=== PATIENT | male | born 1985 | race Native Hawaiian/Other Pacific Islander ===

== ENCOUNTER 2020-07-24 14:06 | Emergency (ER) | payer BC ==
[2020-07-24] MEDS ORDERED: EMLA Cream 5 GM TP ONE ×2 (14:16→14:17)
[2020-07-24 15:38] VITALS: BP 131/93; PULSE 105
--- NOTE | 2020-07-24 15:41 | ERPHSYRPT ---
- History of Present Illness Time Seen by Provider: 07/24/20 14:50 Source: patient Exam Limitations: no limitations Patient Subjective Stated Complaint: Pt hit his right brow on a van door causing an approx 3 cm laceration Triage Nursing Assessment: Pt brought into the ER by his , tachycardic, approx 3 cm laceration above/through/and under the right brow, rates pain as 4/10, denies LOC, doesn't appear to be in any distress Physician History: Patient is a 33-year-old male who was hit when he turned into a door on a van just on the right forehead eyebrow and nose. There are actually 3 separate lacerations total length approximately 5 cm only a small portion of about a centimeter and a half is deep enough to require any sutures. Was no loss of consciousness there was no other injury. Timing/Duration: today Quality: painful Severity: mild Location: face Associated Symptoms: denies symptoms Allergies/Adverse Reactions: bupropion [From Wellbutrin] Adverse Reaction (Verified 07/24/20 14:30) diphenhydramine [From Benadryl] Adverse Reaction (Verified 07/24/20 14:30) Home Medications: No Reportable Medications [No Reported Medications] 07/24/20 [History] Immunizations Up to Date: No Travel Risk - International Travel Have you traveled outside of the country in past 3 weeks: No - Coronavirus Screening Are you exhibiting any of the following symptoms?: No Close contact with a COVID-19 positive Pt in past 14-21 Days: No - Vaccine Status Have you recieved a Covid-19 vaccination: Yes [employer]: Moderna - Vaccination Dates Date of 2cond Vaccination (if applicable): 07/10/2020 - Review of Systems Constitutional: No Fever, No Chills Eyes: No Symptoms Ears, Nose, & Throat: No Symptoms Respiratory: No Cough, No Dyspnea Cardiac: No Chest Pain, No Edema, No Syncope Abdominal/Gastrointestinal: No Abdominal Pain, No Nausea, No Vomiting, No Diarrhea Genitourinary Symptoms: No Dysuria Musculoskeletal: No Back Pain, No Neck Pain Skin: No Rash Neurological: No Dizziness, No Focal Weakness, No Sensory Changes Psychological: No Symptoms Endocrine: No Symptoms All Other Systems: Reviewed and Negative - Past Medical History Pertinent Past Medical History: No - Past Surgical History Past Surgical History: Yes Other Surgical History: rt ear drum reconstructed. rt ear burst twice. lots of ear tubes - Social History Smoking Status: Current every day smoker Exposure to second hand smoke: Yes Drug Use: marijuana Patient Lives Alone: No - Nursing Vital Signs Nursing Vital Signs: Initial Vital Signs Temperature 98.2 F 07/24/20 14:14 Pulse Rate 108 H 07/24/20 14:14 Blood Pressure 131/94 07/24/20 14:14 O2 Sat by Pulse Oximetry 97 07/24/20 14:14 Pain Scale Pain Intensity 4 - Physical Exam General Appearance: mild distress Eye Exam: PERRL/EOMI, eyes nml inspection Ears, Nose, Throat Exam: normal ENT inspection, pharynx normal, moist mucous membranes Neck Exam: normal inspection, non-tender, supple Respiratory Exam: No chest tenderness, No respiratory distress Neurologic Exam: alert, oriented x 3, cooperative Skin Exam: laceration (As mentioned above there is a laceration on the right forehead actually 3 lacerations total length 5 cm) SpO2 Interpretation: normal SpO2: 98 O2 Delivery: Room Air Procedures - Laceration/Wound Repair Face Time of Procedure: 15:00 (5 cm total length of 3 lacerations to the right fo rehead eyebrow and nose all of the ear laceration is extremely superficial other than about a centimeter and a half in the middle of the largest laceration just above the eyebrow and into the eyebrow) Wound Location: forehead Wound Length (cm): 5 Wound's Depth, Shape: superficial, linear Wound Explored: clean Irrigated: Yes Hibiclens Prep: Yes Anesthesia: topical Wound Debrided: minimal (v) Suture Size/Type: 6-0 Number of Sutures: 4 Layer Closure?: No Sterile Dressing Applied?: No Splint Applied?: No - Course Nursing assessment & vital signs reviewed: Yes Ordered Tests: Medication Summary Discontinued Medications Generic Name Dose Route Start Last Admin Trade Name Freq PRN Reason Stop Dose Admin Lidocaine/Prilocaine 2.5 gm 07/24/20 14:16 07/24/20 14:20 Emla Cream 5 Gm TP 07/24/20 14:17 2.5 gm STAT ONE Administration Lidocaine/Prilocaine Confirm 07/24/20 14:17 Emla Cream 5 Gm Administered 07/24/20 14:18 Dose 5 gm TP .STK-MED ONE - Progress Progress: improved - Departure Departure Disposition: Home Clinical Impression: Laceration of face Condition: Stable Critical Care Time: No Referrals: DOCTOR,NO FAMILY [Primary Care Provider] - Instructions: Wound Care (DC), Laceration Repair With Stitches (DC)
[2020-07-24 15:42] VITALS: O2SAT 98
[2020-07-24] MEDS ORDERED: Adacel Vial IM ONE ×2 (15:44→15:45)
== END 2020-07-24 15:58 | disposition home or self-care (01) ==
LOC: ED 14:06 → EDBD 14:06 → ED 15:58
DX: S01.81XA Laceration without foreign body of other part of head, initial encounter (principal); W22.09XA Striking against other stationary object, initial encounter; Y93.89 Activity, other specified; Y92.89 Other specified places as the place of occurrence of the external cause
CPT/HCPCS: 12014; 90471; 90715; 99283; A9270-GY